=== PATIENT | male | born 1970 | race Caucasian/White ===

== ENCOUNTER 2024-05-07 15:18 | Outpatient (CLI) | payer OTHER, SELFPAY ==
[2024-05-07 16:22] LABS: Strep Group A RT-PCR NOT DETECTED (Negative)
[2024-05-07 16:33] LABS: Influenza A QL RT-PCR Negative (Negative); Influenza B QL RT-PCR Negative (Negative); RSV RNA, RT-PCR Negative (Negative); SARS-CoV-2 RNA PCR Negative (Negative)
== END 2024-05-07 15:19 | disposition home or self-care (01) ==
PROVIDERS: PCP Internal Medicine; Visit Provider Internal Medicine
DX: R09.81 Nasal congestion (principal)
CPT/HCPCS: 87637; 87651